=== PATIENT | male | born 1945 | race Caucasian/White ===

== ENCOUNTER → 2020-04-23 | Outpatient (CLI) | payer MEDICARE | END | disposition home or self-care (01) | LOC: LABWHC1 11:40 | PROVIDERS: ATTEND Family Medicine | DX: Z20.828 Contact with and (suspected) exposure to other viral communicable diseases (principal); R06.02 Shortness of breath; J44.1 Chronic obstructive pulmonary disease with (acute) exacerbation | CPT/HCPCS: U0003; C9803 ==

== ENCOUNTER → 2022-10-07 | Outpatient (CLI) | payer MEDICARE ==
--- NOTE | 2022-10-07 18:24 | CA ---
Transthoracic Echo Report Name: Simba Sierra Age: 77 Gender: M : 1945 Exam Date: 10/07/2022 14:11 Exam Location: [place] [facility] Ht (in): 69 Wt (lb): 220 Ordering Physician: Gabe Desouza DO Attending/Referring Phys: Gabe Desouza DO [employer] Manjit Reynolds RDCS Procedure CPT: Indications: I10 HTN Cardiac Hx: HTN;Obesity; COPD;Obesity; Smoker; Technical Quality: Fair Contrast 1: Total Dose (mL): Contrast 2: Total Dose (mL): MEASUREMENTS (Male / Female) Normal Values 2D ECHO LV Diastolic Diameter PLAX 4.2 cm 4.2 - 5.9 / 3.9 - 5.3 cm LV Systolic Diameter PLAX 3.1 cm IVS Diastolic Thickness 1.8 cm 0.6 - 1.0 / 0.6 - 0.9 cm LVPW Diastolic Thickness 1.8 cm 0.6 - 1.0 / 0.6 - 0.9 cm LV Relative Wall Thickness 0.9 RV Internal Dim ED PLAX 3.0 cm LVOT Diameter 2.5 cm LA Systolic Diameter LX 4.6 cm 3.0 - 4.0 / 2.7 - 3.8 cm LV Diastolic Volume MOD BP 96.4 cm??? 67 - 155 / 56 - 104 cm??? LV Systolic Volume MOD BP 37.9 cm??? 22 - 58 / 19 - 49 cm??? LV Ejection Fraction MOD BP 60.7 % >= 55 % LV Diastolic Volume MOD 4C 86.5 cm??? LV Systolic Volume MOD 4C 38.2 cm??? LV Ejection Fraction MOD 4C 55.9 % LV Diastolic Length 4C 7.9 cm LV Systolic Length 4C 6.3 cm LV Diastolic Volume MOD 2C 91.1 cm??? LV Systolic Volume MOD 2C 37.9 cm??? LV Ejection Fraction MOD 2C 58.4 % LV Diastolic Length 2C 6.7 cm LV Systolic Length 2C 6.2 cm Ascending Aorta Diameter 3.5 cm M-MODE Aortic Root Diameter MM 3.4 cm LA Systolic Diameter MM 3.5 cm LA Ao Ratio MM 1.0 MV E Point Septal Separation 0.8 cm AV Cusp Separation MM 1.9 cm DOPPLER AV Peak Velocity 110.3 cm/s AV Peak Gradient 4.9 mmHg Mitral E Point Velocity 78.4 cm/s Mitral A Point Velocity 87.7 cm/s Mitral E to A Ratio 0.9 MV Deceleration Time 170.9 ms MV E' Velocity 4.3 cm/s Mitral E to MV E' Ratio 18.3 TR Peak Velocity 80.1 cm/s TR Peak Gradient 2.6 mmHg Right Ventricular Systolic Press 7.6 mmHg PV Peak Velocity 79.2 cm/s PV Peak Gradient 2.5 mmHg FINDINGS Left Ventricle Left ventricular ejection fraction is estimated at 55-60 %. Moderate concentric left ventricular hypertrophy. Grade 1 diastolic dysfunction. Normal basal systolic function. Right Ventricle Normal right ventricular size and function. Right Atrium Normal right atrial size. Left Atrium Mild left atrial dilatation. 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 Mild mitral annular calcification. Mild mitral stenosis. Trace to mild mitral regurgitation. Aortic Valve Trileaflet aortic valve. Diffuse thickening (sclerosis) of the aortic valve cusps without reduced excursion. Tricuspid Valve Trace to mild tricuspid regurgitation. Pulmonic Valve Structurally normal pulmonic valve. Pericardium Normal pericardium. Echo free space anterior to the right ventricle likely represents a fat pad. Aorta Mildly dilated aortic annulus (3.5 cm). CONCLUSIONS Technically difficult study for interpretation Normal LV systolic function Previewed by: Dr. Villa Nice MD (Electronically Signed) Final Date: 07 October 2022 18:22
== END | disposition home or self-care (01) ==
LOC: RADECHMAIN 13:42
PROVIDERS: ATTEND Family Medicine
DX: I10 Essential (primary) hypertension (principal)
CPT/HCPCS: 93306